=== PATIENT | male | born 1955 | race Caucasian/White ===

== ENCOUNTER 2018-11-09 00:47 | Emergency (ER) | payer MEDICARE ==
--- NOTE | 2018-11-12 15:01 | EKG ---
Test Reason : Blood Pressure : / mmHG Vent. Rate : 073 BPM Atrial Rate : 073 BPM P-R Int : 212 ms QRS Dur : 080 ms QT Int : 382 ms P-R-T Axes : 058 049 031 degrees QTc Int : 420 ms Sinus rhythm with 1st degree A-V block Otherwise normal ECG Confirmed by MARLEEN Cheung, MILI ([id number]), publishing editor EDUIN LOVE ([id number]) on 11/12/2018 3:01:14 PM Referred By: Confirmed By:MILI HAWLEY M.D.
== END 2018-11-09 01:35 | disposition left against medical advice (07) ==
LOC: ERS 00:47
DX: Z53.21 Procedure and treatment not carried out due to patient leaving prior to being seen by health care provider (principal)
CPT/HCPCS: 93005

== ENCOUNTER 2019-09-11 19:11 | Inpatient (IN) | payer MEDICARE ==
[2019-09-11] MEDS ORDERED: Pantoprazole 40 MG VIAL ONE (19:39)
[2019-09-11] MEDS ORDERED: Ondansetron PF 4 MG/2 ML Vial ONE (19:39)
[2019-09-11 19:48] LABS: INR-International Normal Ratio 0.9; PTT 25.7 SEC (22.9-36.1); Prothrombin Time 12.5 SEC (12.0-14.7)
[2019-09-11 19:53] LABS: Hemoglobin 15.7 g/dL (14.0-18.0); Mean Corpuscular HGB CONC 33.9 g/dL (32.0-36.0); Mean Corpuscular Hemoglobin 31.5 pg (27.0-31.0); Mean Corpuscular Volume 92.8 fL (78.0-98.0); RBC Distribution Width 11.2 % (11.5-14.5)
[2019-09-11 20:07] LABS: ALT (SGPT) 54 U/L (8-55); AST (SGOT) 41 U/L (5-34); Albumin 4.9 g/dL (3.4-4.8); Alkaline Phosphatase 44 U/L (40-110); Anion Gap 17 mmol/L (10-20); BUN (Urea Nitrogen) 30 mg/dL (8.4-25.7); Bilirubin, Total 0.9 mg/dL (0.2-1.2); Calc. Creatinine Clearance 0 mL/min (70-130); Carbon Dioxide 23 mmol/L (23-31); Chloride 101 mmol/L (98-107); Estimated GFR-MDRD 35; Globulin 2.4 g/dL (2.4-3.5); Glucose 190 mg/dL (80-115); Potassium 4.5 mmol/L (3.5-5.1); Protein, Total 7.3 g/dL (5.8-8.1); Sodium 136 mmol/L (136-145)
[2019-09-11 20:18] LABS: Band 23 % (5-11); Lymphocytes 2 % (21-51); MDiff Complete? YES; Mean Platelet Volume 11.3 fL (7.4-10.4); Monocytes 3 % (0-10); Neutrophil 72 % (42-75); Platelet Count 126 thou/uL (130-400); White Blood Cell (WBC) Count 21.8 thou/uL (4.8-10.8)
[2019-09-11] MEDS ORDERED: Morphine 4 MG/ML VIAL ONE (21:49)
[2019-09-11 22:02] LABS: Bilirubin Negative (Negative); Blood, Urine Negative (Negative); Clarity Clear (Clear); Glucose, Urine (Dipstick) Normal (Negative); Leukocyte 25 Leu/uL (Negative); Nitrite Negative (Negative); Protein, Urine (Dipstick) 30 mg/dL (Neg-Trace); Urobilinogen Normal mg/dL (Less than 2)
[2019-09-11 22:03] LABS: Squamous Epithelial 0-3 HPF (0-3)
[2019-09-11 22:09] LABS: Bacteria/HPF Rare-Few HPF (None Seen); Calcium Oxalate Crystals Rare HPF (None Seen)
--- NOTE | 2019-09-11 23:24 | CT ---
Exam: Abdomen and pelvic CT scan without IV contrast: HISTORY: Bloody diarrhea and vomiting FINDINGS: Minimal linear parenchymal changes in the right lung base probably subsegmental atelectasis with righ t hemidiaphragm elevation versus chronic change. Unremarkable appearing liver, gallbladder and spleen. Small stable hypodensity at the body of the pancreas. Bilateral renal cysts. Nonobstructing l eft renal calculus. Marked abnormal wall thickening of the transverse colon evidence for nonspecific colitis. There is some scattered gas in borderline size small bowel. Minimal sigmoid colo n diverticulosis without acute diverticulitis. IMPRESSION: Marked colonic wall thickening primarily the transverse colon with some pericolonic fat stranding julieta dence for acute colitis. Nonobstructing left renal calculus. Other findings as above.
[2019-09-11] MEDS ORDERED: metroNIDAZOLE 500 MG in Premix Bag 1 BAG IVPB SCH (23:45)
[2019-09-12] MEDS ORDERED: metroNIDAZOLE 500 MG/100 ML BAG ONE (00:25)
[2019-09-12] MEDS ORDERED: Morphine 4 MG/ML VIAL ONE (00:43)
[2019-09-12] MEDS ORDERED: Ondansetron ODT 4 MG TAB SL PRN (01:35)
[2019-09-12] MEDS ORDERED: Morphine 4 MG/ML VIAL SLOW IVP PRN ×3 (01:35→05:47)
[2019-09-12] MEDS ORDERED: Ondansetron PF 4 MG/2 ML Vial IVP PRN (01:35)
[2019-09-12] MEDS ORDERED: Sodium Chloride 0.9% 1,000 ML IV SCH (01:45)
[2019-09-12 02:07] VITALS: BMI 32.1
[2019-09-12] MEDS: Sodium Chloride 0.9% 1,000 ML IV SCH ×2 (02:16→18:28)
--- NOTE | 2019-09-12 02:36 | PDOC.EVN ---
Event Note - Event Note Event Note: [id number] HP
[2019-09-12] MEDS: metroNIDAZOLE 500 MG in Premix Bag 1 BAG IVPB SCH ×3 (05:22→18:51)
[2019-09-12] MEDS ORDERED: HYDROmorphone 2 MG TAB PO SCH ×2 (05:45→11:45)
[2019-09-12 06:03] LABS: ALT (SGPT) 41 U/L (8-55); AST (SGOT) 34 U/L (5-34); Albumin 3.9 g/dL (3.4-4.8); Alkaline Phosphatase 31 U/L (40-110); Anion Gap 13 mmol/L (10-20); BUN (Urea Nitrogen) 25 mg/dL (8.4-25.7); Band 24 % (5-11); Bilirubin, Total 0.7 mg/dL (0.2-1.2); Calc. Creatinine Clearance 97 mL/min (70-130); Calcium 9.3 mg/dL (7.8-10.44); Carbon Dioxide 21 mmol/L (23-31); Chloride 109 mmol/L (98-107); Estimated GFR-MDRD 61; Globulin 1.9 g/dL (2.4-3.5); Glucose 121 mg/dL (80-115); Hemoglobin 13.3 g/dL (14.0-18.0); Large Platelets SLIGHT; Lymphocytes 6 % (21-51); MDiff Complete? YES; Mean Corpuscular HGB CONC 34.1 g/dL (32.0-36.0); Mean Corpuscular Hemoglobin 31.8 pg (27.0-31.0); Mean Corpuscular Volume 93.2 fL (78.0-98.0); Mean Platelet Volume 11.4 fL (7.4-10.4); Monocytes 5 % (0-10); Neutrophil 65 % (42-75); Platelet Count 94 thou/uL (130-400); Platelet Morphology Comment Appears Decreased; Potassium 4.5 mmol/L (3.5-5.1); Protein, Total 5.8 g/dL (5.8-8.1); RBC Distribution Width 11.3 % (11.5-14.5); Red Blood Cell (RBC) Count 4.19 mill/uL (4.70-6.10); Sodium 138 mmol/L (136-145); White Blood Cell (WBC) Count 14.7 thou/uL (4.8-10.8)
[2019-09-12] MEDS ORDERED: metroNIDAZOLE 500 MG in Premix Bag 1 BAG IVPB SCH (08:00)
[2019-09-12] MEDS: Pantoprazole 40 MG VIAL IVP SCH ×2 (09:53→20:34)
[2019-09-12 14:56] LABS: Hemoglobin 13.7 g/dL (14.0-18.0)
[2019-09-12] MEDS: Sodium Chloride 0.45% 1,000 ML IV SCH (17:07)
[2019-09-12] MEDS: Acetaminophen 1,000 MG in Premix Bag 1 BAG IVPB PRN (17:08)
--- NOTE | 2019-09-12 18:57 | PDOC.HOSPP ---
- Subjective Encounter Date: 09/12/19 Encounter Time: 16:00 Subjective: The patient states bloody diarrhea has improved but he still has persistent cramping in lower quadrants. He states morphine does nothing for him, dilaudid helped. He has not eaten in two days. Sip of gatorade seemed to help his cramping. He reports having intestinal problems for a year, went on a gluten free diet for a year and improved his pain however bloody diarrhea started Saturday. - Objective Vital Signs & Weight: Vital Signs (12 hours) Temp Pulse Resp BP Pulse Ox 09/12/19 16:36 97.7 F 80 20 136/76 94 L 09/12/19 12:05 98.1 F 71 20 145/78 H 96 09/12/19 08:40 94 L 09/12/19 07:57 98.5 F 73 18 116/67 94 L Weight Weight 243 lb 1.6 oz I&O: 09/11/19 09/12/19 09/13/19 06:59 06:59 06:59 Intake Total 500 Balance 500 Result Diagrams: 09/12/19 14:48 09/12/19 04:48 Hospitalist ROS - Review of Systems Constitutional: denies: fever, chills Eyes: denies: vision change - Medication Medications: Active Medications Generic Name Dose Route Start Last Admin Trade Name Freq PRN Reason Stop Dose Admin Metronidazole 500 mg/ Device 100 mls @ 100 mls/hr 09/12/19 06:00 09/12/19 18: 51 IVPB 100 mls Q6HR WALI Administration Ciprofloxacin/Dextrose 400 mg/ 200 mls @ 200 mls/hr 09/12/19 03:00 09/12/19 16:53 Device IVPB 09/18/20 15:30 200 mls 0300,1500 WALI Administration Acetaminophen 1,000 mg/ Device 100 mls @ 400 mls/hr 09/12/19 16:27 09/12/19 17:08 IVPB 09/13/19 16:28 100 mls Q8H PRN Administration Fever/Mild Pain Sodium Chloride 1,000 mls @ 100 mls/hr 09/12/19 16:30 09/12/19 17:07 1/2 Normal Saline IV 1,000 mls .Q10H WALI Administration Pantoprazole Sodium 40 mg 09/12/19 09:00 09/12/19 09:53 Protonix IVP 40 mg BID WALI Administration - Exam Eye: PERRL, anicteric sclera ENT: normocephalic atraumatic, no oropharyngeal lesions Neck: no JVD Heart: RRR, no murmur, no gallops Respiratory: CTAB, no wheezes, no rales Gastrointestinal: soft, non-tender, non-distended Extremities: no cyanosis, no clubbing, no edema Skin: normal turgor, no lesions, no rashes Neurological: cranial nerve grossly intact Musculoskeletal: normal tone, normal strength Psychiatric: normal affect, normal behavior, A&O x 3 Hosp A/P - Plan CT abdomen: marked colonic wall thickening in the transverse colon with pericolonic fat stranding consistent with acute colitis. Nonobstructing left renal stone. This is a 64 year old male who was admitted for acute colitis Acute colitis - continue cipro and flagyl, WBC improving from 21 to 14. Bloody diarrhea improving. Stool culture, shiga toxin, C diff, E coli, campylobacter negative - will consult GI for persistent abdominal pain - considering some improvement with clear liquids, will try to advance to clear liquids as tolerated - change fluids to D5 1/2 NS - IV tylenol for pain, dilaudid for severe pain but try to minimize BPH - finasteride Hypertension - hold lisinopril and amlodipine for now Hyperlipidemia - statin Code status: full code DVT prophylaxis: ambulation
[2019-09-12] MEDS: HYDROmorphone 2 MG TAB PO PRN (22:10)
[2019-09-12 22:17] LABS: Hemoglobin 12.5 g/dL (14.0-18.0)
[2019-09-13] MEDS: metroNIDAZOLE 500 MG in Premix Bag 1 BAG IVPB SCH ×3 (00:08→11:50)
[2019-09-13] MEDS: HYDROmorphone 2 MG TAB PO PRN ×4 (03:12→20:32)
[2019-09-13] MEDS: Acetaminophen 1,000 MG in Premix Bag 1 BAG IVPB PRN (03:16)
[2019-09-13] MEDS: Sodium Chloride 0.45% 1,000 ML IV SCH ×2 (03:57→08:21)
[2019-09-13 06:50] LABS: Hemoglobin 11.8 g/dL (14.0-18.0); Mean Corpuscular HGB CONC 34.8 g/dL (32.0-36.0); Mean Corpuscular Hemoglobin 32.2 pg (27.0-31.0); Mean Corpuscular Volume 92.7 fL (78.0-98.0); Mean Platelet Volume 11.1 fL (7.4-10.4); Platelet Count 73 thou/uL (130-400); Red Blood Cell (RBC) Count 3.67 mill/uL (4.70-6.10); White Blood Cell (WBC) Count 9.4 thou/uL (4.8-10.8)
[2019-09-13 07:06] LABS: Anion Gap 10 mmol/L (10-20); BUN (Urea Nitrogen) 16 mg/dL (8.4-25.7); Calc. Creatinine Clearance 137 mL/min (70-130); Calcium 8.4 mg/dL (7.8-10.44); Carbon Dioxide 22 mmol/L (23-31); Chloride 108 mmol/L (98-107); Estimated GFR-MDRD Greater than 90; Glucose 101 mg/dL (80-115); Potassium 3.9 mmol/L (3.5-5.1); Sodium 136 mmol/L (136-145)
[2019-09-13] MEDS: Pantoprazole 40 MG VIAL IVP SCH ×2 (08:21→20:37)
[2019-09-13 12:36] LABS: Iron 41 ug/dL (65-175); Iron Binding Capacity, Total 243 mcg/dL (261-462)
[2019-09-13 13:38] LABS: Lactic Acid 0.7 mmol/L (0.5-2.2)
--- NOTE | 2019-09-13 15:14 | PDOC.HOSPP ---
- Subjective Encounter Date: 09/13/19 Encounter Time: 12:00 Subjective: Patient states last night he ate a clear liquid diet which worsened his pain and was exruciating. He did well with the IV tylenol which helped him sleep and helped with his pain. Encouraged him to use dilaudid only if severe. Denies fevers or chills, but continues to have cramping and is passing blood clots in his stool. He states the color is dark red. - Objective Vital Signs & Weight: Vital Signs (12 hours) Temp Pulse Resp BP Pulse Ox 09/13/19 11:27 98.2 F 73 18 139/73 95 09/13/19 07:30 98.1 F 70 16 124/73 94 L 09/13/19 04:14 98.9 F 68 16 135/78 92 L Weight Weight 243 lb 1.6 oz I&O: 09/12/19 09/13/19 09/14/19 06:59 06:59 06:59 Intake Total 500 Balance 500 Result Diagrams: 09/13/19 06:16 09/13/19 06:16 Hospitalist ROS - Review of Systems Constitutional: denies: fever, chills Cardiovascular: denies: chest pain, palpitations - Medication Medications: Active Medications Generic Name Dose Route Start Last Admin Trade Name Freq PRN Reason Stop Dose Admin Hydromorphone HCl 2 mg 09/12/19 16:28 09/13/19 09:02 Dilaudid PO 2 mg Q4H PRN Administration Severe Pain (7-10) Acetaminophen 1,000 mg/ Device 100 mls @ 400 mls/hr 09/12/19 16:27 09/13/19 03:16 IVPB 09/13/19 16:28 100 mls Q8H PRN Administration Fever/Mild Pain Sodium Chloride 1,000 mls @ 100 mls/hr 09/12/19 16:30 09/13/19 08:21 1/2 Normal Saline IV 1,000 mls .Q10H WALI Administration Pantoprazole Sodium 40 mg 09/12/19 09:00 09/13/19 08:21 Protonix IVP 40 mg BID WALI Administration - Exam Eye: PERRL, anicteric sclera ENT: normocephalic atraumatic, no oropharyngeal lesions Neck: supple, symmetric, no JVD Heart: RRR, no murmur, no gallops Respiratory: CTAB, no wheezes, no rales Gastrointestinal: soft, non-distended, normal bowel sounds Gastrointestinal - other findings: RLQ tenderness Extremities: no cyanosis, no clubbing, no edema Skin: normal turgor, no lesions, no rashes Neurological: cranial nerve grossly intact, normal sensation to touch, no focal deficits, no new deficit Musculoskeletal: normal tone, normal strength, no muscle wasting Psychiatric: normal affect, normal behavior, A&O x 3, oriented to person Hosp A/P - Plan CT abdomen: marked colonic wall thickening in the transverse colon with pericolonic fat stranding consistent with acute colitis. Nonobstructing left renal stone. This is a 64 year old male who was admitted for acute colitis Acute colitis - CT showed marked colonic wall thickening. On cipro and flagyl. GI was consulted due to persistent bloody diarrhea. All stool cultures including bacterial, C diff, shiga toxin, E coli, campylobacter are negative. - GI recommends switching from flagyl to zosyn, continue cipro - will keep patient NPO and continue IV fluids - IV tylenol for pain, dilaudid for severe pain - celiac panel ordered BPH - finasteride Hypertension - hold lisinopril and amlodipine for now Hyperlipidemia - statin Dispo: pending improvement of abdominal pain Diet: NPO, IV fluids Code status: full code DVT prophylaxis: ambulation
[2019-09-13] MEDS: Dextrose 5 %-0.45 % NaCl 1,000 ML IV SCH (15:48)
[2019-09-13] MEDS: Piperacillin/Tazobactam 3.375 GM in Sodium Chloride 0.9% 100 ML IVPB SCH ×2 (18:36→23:10)
[2019-09-14] MEDS: HYDROmorphone 2 MG TAB PO PRN ×6 (00:37→23:41)
[2019-09-14] MEDS: Dextrose 5 %-0.45 % NaCl 1,000 ML IV SCH ×3 (02:30→23:44)
[2019-09-14] MEDS ORDERED: Acetaminophen 1,000 MG in Premix Bag 1 BAG IVPB SCH (02:30)
[2019-09-14 05:24] LABS: Mean Corpuscular HGB CONC 34.8 g/dL (32.0-36.0); Mean Corpuscular Hemoglobin 31.8 pg (27.0-31.0); Mean Corpuscular Volume 91.4 fL (78.0-98.0); Mean Platelet Volume 10.8 fL (7.4-10.4); Platelet Count 78 thou/uL (130-400); RBC Distribution Width 10.9 % (11.5-14.5); Red Blood Cell (RBC) Count 3.77 mill/uL (4.70-6.10); White Blood Cell (WBC) Count 7.7 thou/uL (4.8-10.8)
[2019-09-14 05:31] LABS: Anion Gap 11 mmol/L (10-20); BUN (Urea Nitrogen) 11 mg/dL (8.4-25.7); Calc. Creatinine Clearance 139 mL/min (70-130); Calcium 8.5 mg/dL (7.8-10.44); Carbon Dioxide 20 mmol/L (23-31); Chloride 109 mmol/L (98-107); Estimated GFR-MDRD Greater than 90; Glucose 97 mg/dL (80-115); Potassium 3.6 mmol/L (3.5-5.1); Sodium 136 mmol/L (136-145)
[2019-09-14] MEDS: Piperacillin/Tazobactam 3.375 GM in Sodium Chloride 0.9% 100 ML IVPB SCH ×4 (06:09→23:42)
--- NOTE | 2019-09-14 08:06 | HP ---
CHIEF COMPLAINT: Bloody diarrhea. HISTORY OF PRESENT ILLNESS: Mr. Masterson is a 64-year-old male with past medical history of hypertension, presented to the emergency room with lower abdominal pain and bloody diarrhea that started around 3:00 a.m. yesterday. The patient reports he was recently constipated, which was relieved by prune juice. Reported diarrhea was brown at first, then was associated with bright red blood. He also noticed blood in his vomit, but which resolved. States that the pain is more in the lower abdomen. The patient was recently on antibiotic a few weeks ago for a dental infection. He reports taking daily aspirin. He also takes NSAIDs frequently. The patient also reported that he had a scope to evaluate his pancreas 4 years ago and reported possible concern for Celiacs but the patient did not follow up. PAST MEDICAL HISTORY: Hypertension. PAST SURGICAL HISTORY: GI endoscopy to evaluate for a pancreatic lesion. SOCIAL HISTORY: Denies smoking, alcohol drinking, or drug abuse. ALLERGIES: NO KNOWN ALLERGIES. HOME MEDICATIONS: Please see home medications reconciliation form for updated medications. FAMILY HISTORY: Reviewed and noncontributory. REVIEW OF SYSTEMS: Review of 14 systems negative except what is mentioned in the history of present illness. PHYSICAL EXAMINATION: GENERAL: The patient is awake, alert, in moderate distress. HEAD AND NECK: Normocephalic, atraumatic. Neck is supple. No JVD. CHEST: Fair bilateral air entry. HEART: S1, S2, regular. ABDOMEN: Soft with lower abdominal tenderness. Bowel sounds present. NEUROLOGIC: Awake, alert, and oriented x3. PSYCHIATRIC: Normal mood. EXTREMITIES: No clubbing, no cyanosis. LABORATORY DATA: WBC count is elevated at 21,800, hemoglobin is 15.7, platelets 126. Sodium 136, potassium 4.5, BUN is 30, creatinine 1.9, glucose 190. CT of the abdomen has been ordered. Results are not available at time of dictation. ASSESSMENT: 1. Acute GI bleeding, lower. 2. Acute colitis. 3. Acute renal failure. 4. Leukocytosis. 5. Hypertension. PLAN: 1. Admit. 2. Follow CT scan report. 3. IV fluids. 4. Stool studies. 5. IV antibiotics. Continue Cipro and metronidazole for now. 6. Pain management. 7. Reconcile home medications. 8. DVT prophylaxis. Early ambulation. 9. Expected length of stay 2 midnights or more. Job ID: [id number]
[2019-09-14] MEDS: Pantoprazole 40 MG VIAL IVP SCH ×2 (08:32→20:04)
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
--- NOTE | 2019-09-14 12:21 | PRG ---
DATE OF SERVICE: 09/14/2019 SUBJECTIVE: Mr. 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 He is still having quite a bit of cramping. He went about eight times in the past 12 hours. He has had no fever or chills. PHYSICAL EXAMINATION: GENERAL: The patient is asking to get something to sleep. The patient is resting comfortably in bed. He is in no overt distress. He is mildly clammy. VITAL SIGNS: Temperature is 98.3, he has been afebrile overnight. Pulse is 63, blood pressure 124/70. SKIN: Somewhat clammy. HEART: Regular rate and rhythm. LUNGS: Clear. ABDOMEN: Soft. There is no rebound. There is no guarding. LABORATORY DATA: White count is 7.7, hemoglobin 12.0, platelet count 78,000. Basement profile normal. Microbiology and stool cultures finally were negative. ASSESSMENT: Ischemic colitis, slowly improving. RECOMMENDATIONS: Continue IV fluids. Advance diet slowly. We will add Bentyl p.r.n. for cramping. We will defer to Hospitalist Service for sleep aid. Job ID: [id number]
[2019-09-14] MEDS: Dicyclomine 10 MG CAP PO PRN (13:32)
[2019-09-14] MEDS ORDERED: Melatonin 3 MG TAB PO PRN (17:22)
--- NOTE | 2019-09-14 17:36 | PDOC.HOSPP ---
- Subjective Encounter Date: 09/14/19 Encounter Time: 17:00 Subjective: The patient had 8 episodes of diarrhea today, continued to pass blood clots. No fevers, whit count is coming down. He still has some cramping but it has improved compared to yesterday - Objective Vital Signs & Weight: Vital Signs (12 hours) Temp Pulse Resp BP Pulse Ox 09/14/19 16:06 98.1 F 74 18 131/81 94 L 09/14/19 08:01 98.3 F 63 16 124/70 94 L Weight Weight 243 lb 1.6 oz I&O: 09/13/19 09/14/19 09/15/19 06:59 06:59 06:59 Intake Total 1300 1200 Balance 1300 1200 Result Diagrams: 09/14/19 04:51 09/14/19 04:51 Hospitalist ROS - Review of Systems Constitutional: denies: fever, chills, sweats Eyes: denies: pain, vision change - Medication Medications: Active Medications Generic Name Dose Route Start Last Admin Trade Name Freq PRN Reason Stop Dose Admin Dicyclomine HCl 10 mg 09/14/19 11:56 09/14/19 13:32 Bentyl PO 10 mg QIDPRN PRN Administration GI Cramping Hydromorphone HCl 2 mg 09/12/19 16:28 09/14/19 15:33 Dilaudid PO 2 mg Q4H PRN Administration Severe Pain (7-10) Piperacillin Sod/Tazobactam 100 mls @ 200 mls/hr 09/13/19 18:00 09/14/19 17: 14 Sod 3.375 gm/ Sodium Chloride IVPB 100 mls Q6HR WALI Administration Dextrose/Sodium Chloride 1,000 mls @ 100 mls/hr 09/13/19 15:30 09/14/19 08:31 D5 1/2 Ns IV 1,000 mls .Q10H WALI Administration Pantoprazole Sodium 40 mg 09/12/19 09:00 09/14/19 08:32 Protonix IVP 40 mg BID WALI Administration - Exam General Appearance: NAD, awake alert Eye: PERRL, anicteric sclera ENT: normocephalic atraumatic, no oropharyngeal lesions Neck: supple, no JVD Heart: RRR, no gallops Respiratory: CTAB, no wheezes, no rales, no ronchi Gastrointestinal: soft Gastrointestinal - other findings: LLQ tenderness, hypoactive bowel sounds Extremities: no cyanosis, no clubbing, no edema Skin: normal turgor, no lesions, no rashes Neurological: cranial nerve grossly intact, normal sensation to touch, no weakness Musculoskeletal: normal tone, normal strength, no muscle wasting Hosp A/P - Plan CT abdomen: marked colonic wall thickening in the transverse colon with pericolonic fat stranding consistent with acute colitis. Nonobstructing left renal stone. This is a 64 year old male who was admitted for acute colitis Acute colitis Bloody diarrhea - CT showed marked colonic wall thickening. On cipro and flagyl, switched to IV zosyn which we will continue for now - GI on board, stool cultures are all negative. They will consider colonoscopy tomorrow if diarrhea is persistent - bentyl added prn per GI - continue NPO status and IV fluids - IV tylenol for pain (first line), dilaudid for severe pain - celiac panel pending - LDH elevated, but LFTS normal so less likely hemolytic anemia #Acute Blood loss anemia #Thrombocytopenia - Hb 12.0, B12 and folate normal - platelet count improving BPH - finasteride Hypertension - hold lisinopril and amlodipine for now Hyperlipidemia - statin Dispo: pending improvement of abdominal pain and diarrhea Diet: NPO, IV fluids Code status: full code DVT prophylaxis: ambulation
[2019-09-15] MEDS: HYDROmorphone 2 MG TAB PO PRN ×4 (05:03→21:25)
[2019-09-15] MEDS: Piperacillin/Tazobactam 3.375 GM in Sodium Chloride 0.9% 100 ML IVPB SCH ×3 (05:05→17:34)
[2019-09-15] MEDS: Dicyclomine 10 MG CAP PO PRN (05:13)
[2019-09-15] MEDS: Dextrose 5 %-0.45 % NaCl 1,000 ML IV SCH ×2 (07:11→17:35)
[2019-09-15] MEDS: Pantoprazole 40 MG VIAL IVP SCH ×2 (09:32→21:24)
--- NOTE | 2019-09-15 14:21 | PDOC.HOSPP ---
- Subjective Encounter Date: 09/15/19 Encounter Time: 01:00 Subjective: The patient states his abdominal pain is improving. He is able to control his diarrhea better, still has some blood clots and it is green in color. No nausea or vomiting. He wants to try clear liquids today. No fevers or chills. He feels his stomach growling - Objective Vital Signs & Weight: Vital Signs (12 hours) Temp Pulse Resp BP Pulse Ox 09/15/19 12:00 98.0 F 74 20 135/83 97 09/15/19 08:00 96 09/15/19 07:49 98.4 F 63 137/78 96 09/15/19 04:20 98.3 F 63 18 126/70 96 Weight Weight 243 lb 1.6 oz I&O: 09/14/19 09/15/19 09/16/19 06:59 06:59 06:59 Intake Total 1300 2300 Balance 1300 2300 Result Diagrams: 09/14/19 04:51 09/14/19 04:51 Hospitalist ROS - Review of Systems Constitutional: denies: fever, chills Cardiovascular: denies: chest pain, palpitations, other - Medication Medications: Active Medications Generic Name Dose Route Start Last Admin Trade Name Freq PRN Reason Stop Dose Admin Dicyclomine HCl 10 mg 09/14/19 11:56 09/15/19 05:13 Bentyl PO 10 mg QIDPRN PRN Administration GI Cramping Hydromorphone HCl 2 mg 09/12/19 16:28 09/15/19 09:32 Dilaudid PO 2 mg Q4H PRN Administration Severe Pain (7-10) Piperacillin Sod/Tazobactam 100 mls @ 200 mls/hr 09/13/19 18:00 09/15/19 12: 49 Sod 3.375 gm/ Sodium Chloride IVPB 100 mls Q6HR WALI Administration Dextrose/Sodium Chloride 1,000 mls @ 100 mls/hr 09/13/19 15:30 09/15/19 07:11 D5 1/2 Ns IV 1,000 mls .Q10H WALI Administration Melatonin 3 mg 09/14/19 17:22 09/14/19 20:03 Melatonin PO 3 mg HS PRN Administration Insomnia Pantoprazole Sodium 40 mg 09/12/19 09:00 09/15/19 09:32 Protonix IVP 40 mg BID WALI Administration - Exam General Appearance: NAD, awake alert Eye: PERRL, anicteric sclera ENT: normocephalic atraumatic, no oropharyngeal lesions Neck: supple, symmetric, no JVD, no thyromegaly Heart: RRR, no murmur, no gallops Respiratory: CTAB, no wheezes Gastrointestinal: soft Gastrointestinal - other findings: RLQ tenderness, good bowel sounds slightly hyperactive Extremities: no cyanosis, no clubbing, no edema Skin: normal turgor, no lesions, no rashes Neurological: cranial nerve grossly intact, normal sensation to touch, no focal deficits, no new deficit Hosp A/P - Plan CT abdomen: marked colonic wall thickening in the transverse colon with pericolonic fat stranding consistent with acute colitis. Nonobstructing left renal stone. This is a 64 year old male who was admitted for acute colitis #Acute colitis #Bloody diarrhea - CT showed marked colonic wall thickening. On cipro and flagyl, switched to IV zosyn which we will continue for now currently day 4 antibiotics -stool cultures are all negative. - will advance diet to clear liquids, continue bentyl prn, IV tylenol and dilaudid prn for pain - #Acute Blood loss anemia #Thrombocytopenia - Hb 12.0, B12 and folate normal - platelet count improving - LDH elevated, LFTS normal so unlikely hemolytic anemia BPH - finasteride Hypertension - hold lisinopril and amlodipine for now Hyperlipidemia - statin Dispo: advance to clear liquids Diet: clear liquids Code status: full code DVT prophylaxis: ambulation
[2019-09-15 15:22] LABS: EliA Celiac New Method **** NEW METHOD ****; t-Transglutaminase (tTG) IgA Less than 0.1 EliAU/mL (<7 Negative)
--- NOTE | 2019-09-15 18:49 | PRG ---
DATE OF SERVICE: 09/15/2019 SUBJECTIVE: Mr. Masterson is feeling better. He has less cramping. He has less bleeding. He started to see some brown stool. LABORATORY DATA: None. Celiac test was negative. OBJECTIVE: VITAL SIGNS: Temperature is 98, pulse 83, and blood pressure 120/80. ABDOMEN: Soft and nontender. ASSESSMENT: Colitis, likely ischemic, progressing well. Advance diet to bland. I suspect he would check a CBC in the morning. If it is stable, he can go home and follow up with me as an outpatient. I have recommended he have a colonoscopy in about 3 to 4 weeks to document healing of his colitis and make sure there is no other underlying disease. Job ID: [id number]
[2019-09-16] MEDS: Piperacillin/Tazobactam 3.375 GM in Sodium Chloride 0.9% 100 ML IVPB SCH ×5 (01:19→23:19)
[2019-09-16] MEDS: HYDROmorphone 2 MG TAB PO PRN ×4 (01:26→23:18)
[2019-09-16 05:30] LABS: #Lymphocytes 1.3 thou/uL (1.20-3.40); #Monocytes 0.4 thou/uL (0.11-0.59); #Neutrophils 1.9 thou/uL (1.40-6.50); %Basophils 0.8 % (0.0-1.0); %Eosinophils 0.1 % (0.0-10.0); %Lymphocytes 35.3 % (21.0-51.0); %Monocytes 11.6 % (0.0-10.0); %Neutrophils 52.2 % (42.0-75.0); Hemoglobin 12.1 g/dL (14.0-18.0); Mean Corpuscular HGB CONC 35.7 g/dL (32.0-36.0); Mean Corpuscular Hemoglobin 32.9 pg (27.0-31.0); Mean Corpuscular Volume 91.9 fL (78.0-98.0); Mean Platelet Volume 10.4 fL (7.4-10.4); Platelet Count 103 thou/uL (130-400); RBC Distribution Width 11.1 % (11.5-14.5); Red Blood Cell (RBC) Count 3.67 mill/uL (4.70-6.10); White Blood Cell (WBC) Count 3.7 thou/uL (4.8-10.8)
[2019-09-16 05:43] LABS: Anion Gap 11 mmol/L (10-20); BUN (Urea Nitrogen) 8 mg/dL (8.4-25.7); Calc. Creatinine Clearance 147 mL/min (70-130); Calcium 8.4 mg/dL (7.8-10.44); Carbon Dioxide 20 mmol/L (23-31); Chloride 109 mmol/L (98-107); Estimated GFR-MDRD Greater than 90; Glucose 105 mg/dL (80-115); Potassium 3.2 mmol/L (3.5-5.1); Sodium 137 mmol/L (136-145)
[2019-09-16] MEDS: Dicyclomine 10 MG CAP PO PRN (06:36)
[2019-09-16] MEDS: Dextrose 5 %-0.45 % NaCl 1,000 ML IV SCH ×2 (07:00→17:59)
[2019-09-16] MEDS: Pantoprazole 40 MG VIAL IVP SCH ×2 (08:52→20:48)
[2019-09-16] MEDS ORDERED: Acetaminophen 1,000 MG in Premix Bag 1 BAG IVPB PRN (09:31)
[2019-09-16] MEDS ORDERED: Acetaminophen 650 MG/20.3 ML UDCUP PO PRN (09:36)
[2019-09-16] MEDS: Potassium Chloride 20 MEQ TAB PO SCH (10:07)
--- NOTE | 2019-09-16 13:10 | PDOC.HOSPP ---
- Subjective Encounter Date: 09/16/19 Encounter Time: 13:00 Subjective: The patient tried clear liquids again last week. He states he had a lot of cramping and didn't tolerate it. This morning he had green stool with dark red blood and clots in it. He left stool sample for me to see it. He has not vomited. Patient anxious about when his diarrhea is going to go away and is started to feel depressed about his situation. - Objective Vital Signs & Weight: Vital Signs (12 hours) Temp Pulse Resp BP Pulse Ox 09/16/19 11:15 98.3 F 59 L 16 117/68 94 L 09/16/19 07:20 98.2 F 56 L 18 128/73 97 09/16/19 04:00 98.4 F 62 17 125/65 95 Weight Weight 243 lb 1.6 oz I&O: 09/15/19 09/16/19 09/17/19 06:59 06:59 06:59 Intake Total 2299 2059 Balance 2299 2059 Result Diagrams: 09/16/19 05:01 09/16/19 05:01 Hospitalist ROS - Review of Systems Constitutional: denies: chills, sweats Eyes: denies: vision change - Medication Medications: Active Medications Generic Name Dose Route Start Last Admin Trade Name Freq PRN Reason Stop Dose Admin Dicyclomine HCl 10 mg 09/14/19 11:56 09/16/19 06:36 Bentyl PO 10 mg QIDPRN PRN Administration GI Cramping Hydromorphone HCl 2 mg 09/12/19 16:28 09/16/19 12:59 Dilaudid PO 2 mg Q4H PRN Administration Severe Pain (7-10) Piperacillin Sod/Tazobactam 100 mls @ 200 mls/hr 09/13/19 18:00 09/16/19 11: 49 Sod 3.375 gm/ Sodium Chloride IVPB 100 mls Q6HR WALI Administration Dextrose/Sodium Chloride 1,000 mls @ 100 mls/hr 09/13/19 15:30 09/16/19 07:00 D5 1/2 Ns IV 1,000 mls .Q10H WALI Administration Melatonin 3 mg 09/14/19 17:22 09/14/19 20:03 Melatonin PO 3 mg HS PRN Administration Insomnia Pantoprazole Sodium 40 mg 09/12/19 09:00 09/16/19 08:52 Protonix IVP 40 mg BID WALI Administration - Exam General Appearance: NAD, awake alert Eye: PERRL, anicteric sclera ENT: normocephalic atraumatic, no oropharyngeal lesions Neck: supple, no JVD Heart: RRR, no murmur, no gallops Respiratory: CTAB, no wheezes, no rales, no ronchi Gastrointestinal: soft, non-distended Gastrointestinal - other findings: LLQ tenderness Extremities: no cyanosis, no clubbing, no edema Skin: normal turgor, no lesions, no rashes Neurological: cranial nerve grossly intact, normal sensation to touch, no focal deficits, no new deficit Musculoskeletal: normal tone, normal strength, no muscle wasting Psychiatric: normal affect Psychiatric - other findings: slightly anxious and likes to know worst case scenarios Hosp A/P - Plan CT abdomen: marked colonic wall thickening in the transverse colon with pericolonic fat stranding consistent with acute colitis. Nonobstructing left renal stone. This is a 64 year old male who was admitted for acute colitis #Acute colitis - likely ischemic #Bloody diarrhea - CT showed marked colonic wall thickening. On cipro and flagyl, switched to IV zosyn. WBC now down to 3, will discontinue since there doesn't seem to be much benefit -per GI, plan for upper endoscopy and colonoscopy tomorrow #Acute Blood loss anemia #Thrombocytopenia - Hb 12.0, B12 and folate normal - platelet count improving - LDH elevated, haptoglobin elevated so not consistent with hemolysis - LFTS normal so unlikely hemolytic anemia BPH - finasteride Hypertension - hold lisinopril and amlodipine for now Hyperlipidemia - statin Dispo: upper endoscopy and colonoscopy tomorrow Diet: clear liquids Code status: full code DVT prophylaxis: ambulation
--- NOTE | 2019-09-16 14:20 | PRG ---
DATE OF SERVICE: 09/16/2019 SUBJECTIVE: Mr. Masterson says he had some clots in his stool again last night after he tried to eat regular food. He has no more cramps or pain. No fever. OBJECTIVE: VITAL SIGNS: Temperature is 98.3, pulse 59, and blood pressure 117/68. ABDOMEN: Soft and nontender. There is no rebound. There is no guarding. LABORATORY DATA: Hemoglobin stable at 12.1, white count 3.7, and platelet count 103,000. ASSESSMENT: Colitis, transverse colon. Clinical situation suggest ischemia with onset after heavy use of laxatives for chronic constipation. PLAN: As the patient continues to have bleeding and is not improving, we will proceed with colonoscopy tomorrow. With findings of colitis on the CT in the maroon stools, I do not really see a reason to proceed with EGD if he is having an upper GI bleed with maroon stools. He would be significantly more anemic as this would indicate rapid hemorrhage. His hemoglobin is 12.1, and it has really not changed over the past [address] Araujo performed at some point in time tomorrow whenever the OR can get this on the schedule. Job ID: [id number]
[2019-09-16] MEDS ORDERED: GoLYTELY 4,000 ml Bottle PO SCH (18:00)
[2019-09-17] MEDS: Dextrose 5 %-0.45 % NaCl 1,000 ML IV SCH ×4 (03:47→23:30)
[2019-09-17] MEDS: HYDROmorphone 2 MG TAB PO PRN ×5 (03:55→23:30)
[2019-09-17] MEDS: Piperacillin/Tazobactam 3.375 GM in Sodium Chloride 0.9% 100 ML IVPB SCH ×3 (05:19→18:40)
[2019-09-17 05:40] LABS: Band 7 % (5-11); Hemoglobin 13.2 g/dL (14.0-18.0); Lymphocytes 30 % (21-51); MDiff Complete? YES; Mean Corpuscular HGB CONC 33.9 g/dL (32.0-36.0); Mean Corpuscular Hemoglobin 31.5 pg (27.0-31.0); Mean Platelet Volume 10.3 fL (7.4-10.4); Monocytes 9 % (0-10); Neutrophil 53 % (42-75); Platelet Count 143 thou/uL (130-400); RBC Distribution Width 11.3 % (11.5-14.5); Reactive Lymphocytes 1 % (0-10); Red Blood Cell (RBC) Count 4.19 mill/uL (4.70-6.10); White Blood Cell (WBC) Count 6.4 thou/uL (4.8-10.8)
[2019-09-17 05:42] LABS: Lactic Acid 2.2 mmol/L (0.5-2.2)
[2019-09-17 05:57] LABS: ALT (SGPT) 67 U/L (8-55); AST (SGOT) 48 U/L (5-34); Albumin 4.2 g/dL (3.4-4.8); Alkaline Phosphatase 35 U/L (40-110); Anion Gap 12 mmol/L (10-20); BUN (Urea Nitrogen) 7 mg/dL (8.4-25.7); Bilirubin, Total 0.7 mg/dL (0.2-1.2); Calc. Creatinine Clearance 129 mL/min (70-130); Calcium 8.9 mg/dL (7.8-10.44); Carbon Dioxide 21 mmol/L (23-31); Chloride 109 mmol/L (98-107); Estimated GFR-MDRD 85; Globulin 2.4 g/dL (2.4-3.5); Glucose 92 mg/dL (80-115); Potassium 3.3 mmol/L (3.5-5.1); Protein, Total 6.6 g/dL (5.8-8.1); Sodium 139 mmol/L (136-145)
[2019-09-17] MEDS: Pantoprazole 40 MG VIAL IVP SCH ×2 (08:20→20:18)
[2019-09-17] MEDS ORDERED: Ondansetron HCl/PF 4 MG/2 ML Vial IVP PRN (08:55)
[2019-09-17] MEDS ORDERED: Acetaminophen 650 MG in Premix Bag 1 BAG IVPB PRN ×2 (09:18→09:28)
[2019-09-17] MEDS ORDERED: Potassium Chloride 10 MEQ in Premix Bag 1 BAG IVPB SCH (09:30)
--- NOTE | 2019-09-17 13:00 | OP ---
DATE OF PROCEDURE: 09/17/2019 PROCEDURES PERFORMED: Esophagogastroduodenoscopy with biopsy and colonoscopy with biopsy. INDICATION FOR PROCEDURE: Hematemesis, melena, diarrhea, and abnormal GI imaging. DESCRIPTION OF PROCEDURE: After the risks and benefits of the procedures were explained to the patient including risks of bleeding, infection, perforation, reactions to anesthesia, aspiration, and/or pain, informed consent was obtained. The patient was then taken to the endoscopy suite, where deep sedation was administered via propofol and anesthesia support. Once adequately sedated, the patient was maneuvered into the left lateral decubitus position and once in proper position, the standard gastroscope was introduced into the mouth with intubation of the esophagus, stomach, and the proximal small intestines with the findings listed below. The patient tolerated this portion of the procedure well with no immediate perioperative complications. Upon conclusion of this portion of the procedure, all equipment was removed from the patient and the bed was rotated to 180 degrees in anticipation for the colonoscopy. After a digital rectal exam was performed, the standard colonoscope was introduced into the rectum and advanced to the terminal ileum without difficulty. The quality of the prep was poor with a significant amount of semi-solid and liquid stool seen throughout the entire colon significantly limiting visualization of the colonic mucosa. Lesions less than 10 mm in size could have been missed. The patient tolerated the procedure well with no immediate perioperative complications. Upon conclusion of the colonoscopy, all equipment was removed from the patient and he was transferred to PACU in satisfactory condition. EGD FINDINGS: Esophagus: Normal-appearing mucosa was seen in both the proximal and mid esophagus. However, in the distal esophagus extending proximally from the GE junction were three tongues of salmon-colored mucosa and extended approximately 1 cm proximal to the gastroesophageal junction. Multiple biopsies were taken from this region for evaluation of possible Motley esophagus. A large hiatal hernia was also seen with the diaphragmatic pinch seen at 43 cm while the gastroesophageal junction was well seen at 40 cm past the incisors denoting the 3 cm hiatal hernia. Otherwise, normal-appearing mucosa was seen in this region with no evidence of erosions, ulcerations, mass, lesions, or active/recent bleeding. Normal-appearing mucosa was seen in the gastric cardia and fundus; however, multiple areas of focal increased mucosal erythema were seen in the gastric body, that measured approximately 1 to 3 mm in size. There were also three small clean based ulcerations measuring 1 to 3 mm in size in this region as well. Multiple biopsies were taken from the ulcerations and placed in a specimen jar for evaluation. Normal-appearing mucosa was then seen in the gastric antrum and incisura. There was no evidence of mass, lesions, or active/recent bleeding seen during this portion of the exam. Duodenum: Normal-appearing mucosa was seen in both the duodenal bulb and second portion of the duodenum. There was no evidence of erosions, ulcerations, mass, lesions, or active/recent bleeding. IMPRESSION: 1. 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 2. A 3 cm hiatal hernia. 3. Three 1 to 3 mm clean based nonbleeding ulcers were seen in the gastric body, status post biopsies for evaluation. COLONOSCOPY FINDINGS: Digital rectal examination: Normal findings were seen on external examination. Colon findings: A large amount of semi-solid and liquid stool was seen throughout the entire colon significantly limiting visualization of the colonic mucosa despite aggressive irrigation and suctioning with large amount of sterile water. Despite the poor prep, the scope was able to be advanced to the terminal ileum without difficulty. Of the mucosa visualized, normal-appearing mucosa was seen in the terminal ileum as well as at the ileocecal valve and appendiceal orifice. Normal-appearing mucosa was then seen within the cecum, ascending, and proximal and mid transverse colons; however, at approximately 50 to 65 cm past the anal verge, three long linear ulcerations were seen extending longitudinally along the length of the colon and spaced equally amongst the ulcers. There was some increased mucosal erythema and slight dusky hue of the mucosa surrounding these linear ulcerations. Multiple biopsies were taken for evaluation. Normal-appearing mucosa was then seen distal to these ulcerations with normal-appearing mucosa then seen in the distal descending sigmoid colon and rectum. Small internal hemorrhoids were seen on rectal retroflexion. IMPRESSION: 1. Segment of the colon between 50 to 65 cm past the anal verge with three large linear ulcerations with surrounding erythema consistent with ischemic colitis. 2. Poor colonic preparation with inadequate visualization of the colonic mucosa with lesions less than 1 cm in size possibly being missed. 3. Small internal hemorrhoids. RECOMMENDATIONS: 1. Would continue to trend his H and H and transfuse as necessary to maintain an H and H of 7/21. 2. Continue to monitor clinically for signs of active GI bleeding. 3. Given the evidence of ischemic colitis would confer with the Radiology Service for possible stenosis or decreased blood flow to the superior mesenteric or inferior mesenteric arteries. 4. Would attempt to avoid episodes of hypotension during this admission. 5. Would also continue with MiraLAX as a bowel regimen while the patient is here in the hospital to prevent further constipation and further increased laxative use that could potentially affect ischemic colitis. 6. Pain control per primary team. 7. Would avoid any NSAIDs during this admission given the presence of the gastric ulcers. 8. We will follow up on the biopsy results with further treatment guided by the therapy. We will continue to follow. Please call with any questions. Job ID: [id number]
[2019-09-17] MEDS ORDERED: Calcium Carbonate 500 MG ChewTAB PO PRN (13:05)
[2019-09-17] MEDS: Aluminum & Magnesium Hydroxide 60 ML, Lidocaine 2% Viscous Solution 30 ML, diphenhydrAM... SSW PRN (14:47)
--- NOTE | 2019-09-17 19:13 | PDOC.HOSPP ---
- Subjective Encounter Date: 09/17/19 Encounter Time: 19:11 Subjective: The patient reported some improvement after drinking his prep. He felt he had less cramps. I saw him after he came back from his endoscopy and colonoscopy, discussed findings with patient and his nurse who is a friend. Advised to try full liquid diet. He denies nausea or vomiting - Objective Vital Signs & Weight: Vital Signs (12 hours) Temp Pulse Resp BP BP Pulse Ox 09/17/19 14:56 98.3 F 62 124/75 96 09/17/19 12:40 97.9 F 70 16 143/82 H 97 09/17/19 08:00 98.3 F 55 L 16 159/82 H 96 Weight Weight 243 lb 1.6 oz I&O: 09/16/19 09/17/19 09/18/19 06:59 06:59 06:59 Intake Total 2059 6500 Balance 2059 6500 Result Diagrams: 09/17/19 04:26 09/17/19 04:26 Hospitalist ROS - Review of Systems Constitutional: denies: chills, sweats - Medication Medications: Active Medications Generic Name Dose Route Start Last Admin Trade Name Freq PRN Reason Stop Dose Admin Al Hydroxide/Mg Hydroxide 60 0 ml 09/17/19 13:10 09/17/19 14:47 ml/ Lidocaine HCl 30 ml/ SSW 10 ml Diphenhydramine HCl 75 mg PRN PRN Administration Mouth Irritation Dicyclomine HCl 10 mg 09/14/19 11:56 09/16/19 06:36 Bentyl PO 10 mg QIDPRN PRN Administration GI Cramping Hydromorphone HCl 2 mg 09/12/19 16:28 09/17/19 14:51 Dilaudid PO 2 mg Q4H PRN Administration Severe Pain (7-10) Dextrose/Sodium Chloride 1,000 mls @ 100 mls/hr 09/13/19 15:30 09/17/19 09:30 D5 1/2 Ns IV Not Given .Q10H WALI Melatonin 3 mg 09/14/19 17:22 09/14/19 20:03 Melatonin PO 3 mg HS PRN Administration Insomnia Pantoprazole Sodium 40 mg 09/12/19 09:00 09/17/19 08:20 Protonix IVP 40 mg BID WALI Administration - Exam General Appearance: NAD, awake alert Eye: PERRL, anicteric sclera ENT: normocephalic atraumatic, no oropharyngeal lesions Neck: supple, no JVD Heart: RRR, no murmur, no gallops Respiratory: CTAB, no wheezes, no rales Gastrointestinal: soft, non-tender, non-distended Gastrointestinal - other findings: hyperactive bowel sounds Extremities: no cyanosis, no clubbing, no edema Skin: normal turgor, no lesions, no rashes Neurological: cranial nerve grossly intact, normal sensation to touch, no focal deficits, no new deficit Musculoskeletal: normal tone, normal strength, no muscle wasting Psychiatric: normal affect, normal behavior, A&O x 3, oriented to person Hosp A/P - Plan CT abdomen: marked colonic wall thickening in the transverse colon with pericolonic fat stranding consistent with acute colitis. Nonobstructing left renal stone. EGD: large hiatal hernia noted, salmon colored esophagus 1 cm proximal to GE junction suspicious for Motley's. Three 1 to 3 mm clean based nonbleeding ulcers in the gastric biopsy Colonoscopy: three long linear ulcerations seen along length of colon and spaced equally among ulcers. Increased mucosal erythema and slight dusky hue of the mucosa. Small internal hemorrhoids. Ischemic colitis This is a 64 year old male who was admitted for bloody diarrhea, found to have ischemic colitis on colonoscopy and ulcers #Acute ischemic colitis #Upper/Lower GI bleeding - endoscopy showing ulcers in the stomach and colonoscopy showing linear ulcers in colon consistent with ischemic colitis. Per Dr. Dallas, supportive care and bleeding likely venous however will clarify about further imaging based off Dr. Huddleston report - was on cipro and flagyl, then IV zosyn. Will discontinue antibiotics for now - monitor H&H - continue IV PPI BID - advance to full liquid diet #Acute Blood loss anemia #Thrombocytopenia - Hb 12.0, B12 and folate normal - platelet count improving - LDH elevated, haptoglobin elevated so not consistent with hemolysis - LFTS normal so unlikely hemolytic anemia BPH - finasteride Hypertension - hold lisinopril and amlodipine for now Hyperlipidemia - statin Constipation - continue miralax Dispo: upper endoscopy and colonoscopy tomorrow Diet: full liquids Code status: full code DVT prophylaxis: ambulation
[2019-09-18] MEDS: Aluminum & Magnesium Hydroxide 60 ML, Lidocaine 2% Viscous Solution 30 ML, diphenhydrAM... SSW PRN (02:17)
[2019-09-18 05:25] LABS: Hemoglobin 12.1 g/dL (14.0-18.0); Mean Corpuscular Hemoglobin 32.5 pg (27.0-31.0); Mean Corpuscular Volume 92.8 fL (78.0-98.0); Mean Platelet Volume 9.9 fL (7.4-10.4); Platelet Count 127 thou/uL (130-400); RBC Distribution Width 11.4 % (11.5-14.5); Red Blood Cell (RBC) Count 3.74 mill/uL (4.70-6.10); White Blood Cell (WBC) Count 4.4 thou/uL (4.8-10.8)
[2019-09-18 05:51] LABS: ALT (SGPT) 58 U/L (8-55); AST (SGOT) 32 U/L (5-34); Albumin 3.7 g/dL (3.4-4.8); Alkaline Phosphatase 31 U/L (40-110); Anion Gap 7 mmol/L (10-20); BUN (Urea Nitrogen) 5 mg/dL (8.4-25.7); Bilirubin, Total 0.7 mg/dL (0.2-1.2); Calc. Creatinine Clearance 139 mL/min (70-130); Calcium 8.5 mg/dL (7.8-10.44); Carbon Dioxide 25 mmol/L (23-31); Chloride 110 mmol/L (98-107); Estimated GFR-MDRD Greater than 90; Glucose 103 mg/dL (80-115); Potassium 3.4 mmol/L (3.5-5.1); Protein, Total 5.7 g/dL (5.8-8.1); Sodium 139 mmol/L (136-145)
--- NOTE | 2019-09-18 07:37 | ULT ---
Sonogram right upper quadrant HISTORY: Right upper quadrant pain. Hematemesis. FINDINGS: Gallbladder is incompletely distended. No stones visible. Common duct is 0.4 cm. Liver is diffusely echogenic without focal mass or intrahepatic biliary dilatation. No free fluid. Right renal cyst is incidentally noted. IMPRESSION: No evidence of gallstones or biliary obstruction. Hepatosteatosis.
[2019-09-18] MEDS: Pantoprazole 40 MG VIAL IVP SCH (09:09)
[2019-09-18] MEDS: Dextrose 5 %-0.45 % NaCl 1,000 ML IV SCH (09:37)
[2019-09-18] MEDS: HYDROmorphone 2 MG TAB PO PRN (09:38)
[2019-09-18] MEDS ORDERED: Potassium Chloride 20 MEQ TAB PO SCH (10:15)
[2019-09-18 11:09] VITALS: TEMP 97.5
[2019-09-18] MEDS: Potassium Chloride 20 MEQ TAB PO SCH (11:10)
[2019-09-18 13:59] VITALS: BP 158/78
--- NOTE | 2019-09-21 12:19 | DIS ---
DATE OF ADMISSION: 09/11/2019 DATE OF DISCHARGE: 09/18/2019 DICTATING PHYSICIAN: Francesca Rivera MD ADMITTING DIAGNOSES: Acute lower gastrointestinal bleeding, acute colitis, acute renal failure, leukocytosis, and hypertension. DISCHARGE DIAGNOSES: Acute ischemic colitis, large hiatal hernia, upper gastrointestinal bleeding secondary to gastric ulcer, internal hemorrhages, possible Motley's esophagus, anemia, thrombocytopenia, hypokalemia, transaminitis, benign prostatic hyperplasia, hypertension, hyperlipidemia, constipation CONSULTATIONS: Gastroenterology with Dr. Edvin Dallas MD. PROCEDURES: Upper endoscopy and colonoscopy, status post gastric biopsy, esophageal biopsy, colon biopsy. BRIEF HPI: This is a 64-year-old male with a past medical history of hypertension, hyperlipidemia, who presented to the emergency room with lower abdominal pain and bloody diarrhea that had started around 3 a.m. The patient initially was constipated and drank a lot of prune juice. Afterwards, he reported diarrhea, which was first brown, but then became bloody. The patient had recently taken antibiotics a few weeks ago and reports taking daily aspirin and NSAIDS. Initial presentation to the ER, the patient was noted to have normal vitals. Blood count was significant for hemoglobin of 15.7. Initial BMP was unremarkable, but AST showed it was 41, AST was 67, and alk phos was 35. The patient was admitted for colitis. CT of abdomen in the ER was consistent with findings of acute colitis with marked colonic wall thickening in the transverse colon. The patient was admitted with IV Cipro and Flagyl. HOSPITAL COURSE: Ischemic colitis: During his hospital course, the patient continued to have persistent bloody diarrhea. Multiple times when his diet was advanced to clear liquids, he was unable to tolerate it due to severe cramping. Therefore, GI was consulted. Cipro and flagyl was initially switched to zosyn to see if that would relieve cramping, but due to persistent symptoms, he eventually an upper endoscopy and colonoscopy were performed on 09/17/2019. Upper endoscopy showed a large hiatal hernia, salmon-colored esophagus at the GE junction , 1 to 3 mm clean base nonbleeding ulcers. Colonoscopy was significant for 3 long linear ulcerations along the length of the colon with increased mucosal erythema and a slight dusky hue of the mucosa. The stomach, esophagus, and colon were biopsied. Biopsies showed no evidences of H. pylori or Motley's esophagus. There is no evidence of malignancy. The patient was told that he mostly likely had ischemic colitis due to his linear ulcers and was told that it may take 1 to 2 weeks to fully resolve. It is expected to have some blood clots and blood in the stools , but he should follow up with Dr. Edvin Dallas from GI in 2 weeks. He should advance his diet as tolerated and the patient was advised to take Protonix 40 mg twice daily to heal his ulcers. Stool cultures were sent during his admission, which were negative for C. diff, campylobacter, E. coli. Antibiotics were discontinued on the since it did not seem to relieve his pain. For his abdominal cramping, he was discharged with Bentyl p.r.n. He was told to take no more than 4 Tylenol a day since his LFTs were slightly elevated. He was given a prescription for Tramadol, since the patient takes Vicodin at home. The patient ran out of his Vicodin and needed some additional to last until Saturday, but tramadol was given instead. The patient's PCP was called on 09/18 and hospital course was discussed with her .. Hypokalemia: The patient was noted to have a potassium of 3.4 on the day of discharge. This is most likely secondary to diarrhea. He was treated with potassium supplementation, but should have a repeat BMP as an outpatient. Transaminitis: . AST of 48, ALT of 67, ALP 35 noted on 09/17. This was most likely secondary to Tylenol, however, gallbladder ultrasound was checked on 09/18 and showed no evidence of gallstones or biliary obstruction, but it showed fatty liver. The patient had repeat LFTs done on 09/18, which showed an improvement in his LFTs. His AST is down to 32, ALT 58, alk phos 31. Anemia: The patient had his hemoglobin and hematocrit of 12/34 on the day of discharge. Vitamin B12 was greater than 2000, folate 16, LDH elevated at 230, haptoglobin was elevated. Lactic acid 0.7. This was most likely secondary to blood loss. Repeat CBC should be done as an outpatient. Leukocytosis:. The patient had a white count of 21.8 on admission, which resolved to 7.7 on the day of discharge. This was potentially secondary to infectious colitis, for which he received antibiotics for 6 days. Acute renal failure: The patient had a creatinine of 1.95 on 09/11. He was placed on IV fluids and creatinine on the day of discharge was 0.84. Hypertension: The patient was advised to stop taking his amlodipine and lisinopril and his blood pressure medications were held in the hospital and blood pressure was adequately controlled without it. His last blood pressure reading was slightly elevated at 158/78, therefore, he was advised to resume finasteride. This was informed to the patient's PCP. Kidney cyst and kidney stone : . The patient was noted to have kidney cysts on both side, then a kidney stone on the left side nonobstructing. The patient needs outpatient followup for this. DISCHARGE PHYSICAL EXAMINATION: VITAL SIGNS: temperature 97.5, heart rate 68, respiratory rate 16, O2 sat96% RA_, and blood pressure 165/87. GENERAL: The patient was alert and oriented x3. The patient was slightly anxious. CVS: Regular rate and rhythm. No murmurs, rubs, or gallops. LUNGS: Clear to auscultation bilaterally. ABDOMEN: Positive bowel sounds. Slight tenderness on the left lower quadrant. EXTREMITIES: No edema. SKIN: No rashes. PSYCH: Very anxious PERTINENT LABS: CBC,09/18/2019; white count 4.4, hemoglobin 12.1 and platelet count 127. BMP, 09/18/2019; potassium noted to be 3.4, chloride 110. LFTs, 09/18/2019; AST 32 and ALT 31. PERTINENT IMAGING: CT of abdomen and pelvis on 09/11/2019: marked colonic wall thickening primarily in the transverse colon with some pericolonic fat stranding evidence for acute colitis. Nonobstructing left renal calculus. Abdominal ultrasound on 09/18/2019,: hepatosteatosis, no evidence of gallstones or biliary obstruction. DISCHARGE CONDITION: Stable. ACTIVITY: As tolerated. DIET: The patient can have a liquid diet and advance as tolerated. DISCHARGE MEDICATIONS: 1. Dicyclomine 10 mg p.o. q.i.d. p.r.n. 2. Colace 100 mg p.o. b.i.d. p.r.n. 3. Protonix 40 mg p.o. b.i.d. 4. MiraLAX 17 grams p.o. daily p.r.n. 5. Senna 8.6 mg p.o. at bedtime p.r.n. 6. Tramadol 25 mg p.o. q.6 hours p.r.n. 12 tablets. 7. Calcium carbonate 1000 mg p.o. q.4 hours p.r.n. 8. Finasteride 5 mg p.o. daily. 9. Rosuvastatin 40 mg p.o. at bedtime. 10. Flomax 0.4 mg p.o. daily. Job ID: [id number] [id number]
== END 2019-09-18 14:03 | disposition home or self-care (01) | DRG 394 ==
LOC: ERS 19:11 → SURG B 23:05
PROVIDERS: ADMIT Internal Medicine; ATTEND Internal Medicine
PROC: 0DB78ZX Excision of Stomach, Pylorus, Via Natural or Artificial Opening Endoscopic, Diagnostic (ICD-10-PCS; principal; 2019-09-17)
PROC: 0DBE8ZX Excision of Large Intestine, Via Natural or Artificial Opening Endoscopic, Diagnostic (ICD-10-PCS; 2019-09-17)
PROC: 0DB38ZX Excision of Lower Esophagus, Via Natural or Artificial Opening Endoscopic, Diagnostic (ICD-10-PCS; 2019-09-17)
DX: K55.9 Vascular disorder of intestine, unspecified (principal); N17.9 Acute kidney failure, unspecified; K86.2 Cyst of pancreas; D62 Acute posthemorrhagic anemia; D69.6 Thrombocytopenia, unspecified; I10 Essential (primary) hypertension; D72.829 Elevated white blood cell count, unspecified; N40.0 Benign prostatic hyperplasia without lower urinary tract symptoms; E78.5 Hyperlipidemia, unspecified; E87.6 Hypokalemia; K59.00 Constipation, unspecified; G89.29 Other chronic pain; M54.9 Dorsalgia, unspecified; K44.9 Diaphragmatic hernia without obstruction or gangrene; K25.9 Gastric ulcer, unspecified as acute or chronic, without hemorrhage or perforation; K64.8 Other hemorrhoids; Z79.82 Long term (current) use of aspirin; Z98.890 Other specified postprocedural states; Z79.899 Other long term (current) drug therapy
CPT/HCPCS: 36415; 74176; 76705; 80048; 80053; 81003; 81015; 82274; 82607; 82728; 82746; 83010; 83516; 83540; 83550; 83605; 83615; 85007; 85025; 85027; 85610; 85730; 86850; 86900; 86901; 87045; 87046; 87086; 87324; 87427; 87449; 88305; 88312; 88313; 96361; 96365; 96375; 96376; C9113; J0131; J0744; J2270; J2405; J2543; J3480; J3490; Q0163